=== PATIENT | male | born 1965 | race Caucasian/White ===

== ENCOUNTER 2016-10-23 11:37 | Emergency (ER) | payer OTHER, BC ==
[2016-10-23] MEDS ORDERED: METOCLOPRAMIDE INJ 10MG/2ML VIAL (J2765) IV ONE (12:45)
[2016-10-23 13:16] VITALS: BP 133/84
--- NOTE | 2016-10-23 13:33 | REP ---
CT Head without contrast HISTORY: Trauma COMPARISON: None There is no intraparenchymal hemorrhage, acute infarct, mass or midline shift. The ventricular system is normal in appearance. There is no extra cerebral collection. There is no fracture. The visualized sinuses are clear. IMPRESSION: There is no intracranial lesion. Signed by Quoc Yoon MD 10/23/2016 01:24 P
[2016-10-23] MEDS ORDERED: CYCL10TA PO (13:40)
[2016-10-23] MEDS ORDERED: IBUP600T26 PO (13:40)
--- NOTE | 2016-10-23 13:47 | REP ---
CT CERVICAL SPINE WITHOUT CONTRAST: HISTORY: Trauma. There is no acute fracture or subluxation. Disc bulges are present at the C2-3 through C4-5 levels. A disc bulge with associated osteophyte formation is present at the C5-6 level. There is minimal narrowing of the spinal canal. Uncinate process hypertrophy is present at the C5-6 level. This produces mild and minimal narrowing of the right and left C5 neural foramina respectfully. The remaining neural foramina are patent. The C5-6 intervertebral disc is decreased in height consistent with disc degeneration. Cervical ribs are present on C7. IMPRESSION: 1. There is no acute fracture or subluxation. 2. There is cervical spondylosis at the C2-3 through C5-6 levels. Signed by Quoc Yoon MD 10/23/2016 01:50 P
== END 2016-10-23 14:08 | disposition home or self-care (01) ==
LOC: EDBD 11:37 → M ED 13:08
DX: S06.0X9A Concussion with loss of consciousness of unspecified duration, initial encounter (principal); S00.01XA Abrasion of scalp, initial encounter; T14.8 Other injury of unspecified body region; V43.52XA Car driver injured in collision with other type car in traffic accident, initial encounter; Y92.410 Unspecified street and highway as the place of occurrence of the external cause
CPT/HCPCS: 70450; 72125; 96374; 99283; J2765

== ENCOUNTER → 2017-11-11 | Outpatient (CLI) | payer OTHER, BC | LOC: M WUC 10:13 | DX: T15.91XA Foreign body on external eye, part unspecified, right eye, initial encounter (principal); T15.92XA Foreign body on external eye, part unspecified, left eye, initial encounter | CPT/HCPCS: 70200 ==

== ENCOUNTER 2018-11-12 07:22 | Emergency (ER) | payer BC, OTHER ==
[~2018-11-12] VITALS: Ht 165.1 cm; Wt 79.0 kg
[~2018-11-12 07:22] MED LIST: CYCL10TA PO; IBUP-1022 PO
[2018-11-12] MEDS ORDERED: CITA20TA6 (07:30)
[2018-11-12] MEDS ORDERED: MUCI120T PO (07:30)
[2018-11-12] MEDS ORDERED: KETOROLAC 30 MG/ML VIAL (J1885) IV ONE (08:15)
[2018-11-12] MEDS ORDERED: ACETAMINOPHEN 500 MG TAB PO ONE (08:15)
[2018-11-12] MEDS ORDERED: NS 1,000 ML IV ONE (08:15)
[2018-11-12 08:59] LABS: BASO # 0.1 10^3/uL (0.0-0.2); BASO % 0.7 % (0.0-1.0); EOS # 0.3 10^3/uL (0.0-0.50); EOS % 3.2 % (0.0-3.0); HEMATOCRIT 44.4 % (42.0-52.0); HEMOGLOBIN 15.2 g/dl (13.5-17.5); LYMPH # 1.7 10^3/uL (1.5-4.5); LYMPH % 18.8 % (24.0-44.0); MEAN CORPUSCULAR HEMOGLOBIN 28.6 pg (27.0-33.0); MEAN CORPUSCULAR HGB CONC 34.2 g/dl (32.0-36.5); MEAN CORPUSCULAR VOLUME 83.5 fl (80.0-96.0); MONO # 0.5 10^3/uL (0.0-0.8); MONO % 5.7 % (0.0-5.0); NEUTROPHILS # 6.3 10^3/uL (1.8-7.7); NEUTROPHILS % 70.7 % (36.0-66.0); PLATELET COUNT, AUTOMATED 326 10^3/uL (150-450); RED BLOOD COUNT 5.32 10^6/uL (4.30-6.10); WHITE BLOOD COUNT 8.8 10^3/uL (4.0-10.0)
[2018-11-12 09:32] LABS: ALT/SGPT 35 U/L (12-78); BILIRUBIN,DIRECT < 0.1 MG/DL (0.0-0.2); BILIRUBIN,TOTAL 0.3 MG/DL (0.2-1.0); BLOOD UREA NITROGEN 17 MG/DL (7-18); CALCIUM LEVEL 9.2 MG/DL (8.5-10.1); CARBON DIOXIDE LEVEL 27 MEQ/L (21-32); CHLORIDE LEVEL 106 MEQ/L (98-107); CREATININE FOR GFR 0.92 MG/DL (0.70-1.30); GLOMERULAR FILTRATION RATE > 60.0 (>56); GLUCOSE, FASTING 111 MG/DL (70-100); LIPASE 316 U/L (73-393); POTASSIUM SERUM 4.7 MEQ/L (3.5-5.1); SODIUM LEVEL 140 MEQ/L (136-145); TOTAL PROTEIN 7.4 GM/DL (6.4-8.2)
--- NOTE | 2018-11-12 09:43 | REP ---
CT abdomen and pelvis without IV or oral contrast: History: Left flank pain. No comparison study. CT findings: Digital preliminary advance scout radiograph shows a normal bowel gas pattern. The liver and spleen are normal in size, homogeneous in texture. The lung bases are clear. No adrenal lesion is seen. No pancreatic abnormality is noted. No abnormality is visible in the gallbladder. There is no evidence of retroperitoneal mass or adenopathy. Some vascular calcification is observed. The patient is status post bilateral inguinal herniorrhaphy. No abnormal fluid collection or recurrent abdominal wall defect is seen. There are one or two dystrophic calcifications in the prostate. Urinary bladder is unremarkable. There is mild left-sided hydronephrosis and proximally hydroureter. This is due to the presence of a 3 mm calculus in the mid ureter on the left. There is mild periureteral edema. There is no evidence of intrarenal calculus on either side. No other ureteral calculus is seen. No bladder calculus is observed. A normal appendix is seen. Impression: Hydronephrosis and hydroureter on the left due to a 3 mm obstructive calculus in the left mid ureter seen at the level of the L4 vertebral body. Electronically Signed by Cleveland Earl MD 11/12/2018 12:02 P
[2018-11-12] MEDS ORDERED: FLOM0.4C39 PO (10:00)
[2018-11-12] MEDS ORDERED: IBUP-1022 PO (10:00)
[2018-11-12] MEDS ORDERED: HYDR-3715 PO (10:00)
[2018-11-12 10:43] VITALS: BP 154/95
== END 2018-11-12 10:47 | disposition home or self-care (01) ==
LOC: M ED 07:22
DX: N23 Unspecified renal colic (principal); E11.9 Type 2 diabetes mellitus without complications; E78.2 Mixed hyperlipidemia; F33.9 Major depressive disorder, recurrent, unspecified; Z87.442 Personal history of urinary calculi; Z98.890 Other specified postprocedural states; Z88.1 Allergy status to other antibiotic agents; Z88.2 Allergy status to sulfonamides; Z79.899 Other long term (current) drug therapy
CPT/HCPCS: 74176; 80048; 80076; 83690; 85025; 93041; 96374; 99284; J1885

== ENCOUNTER → 2021-03-20 | Outpatient (CLI) | payer OTHER, BC ==
[~2021-03-20] MED LIST changes: +CITA20TA6; +CYCL-707 PO; -CYCL10TA PO; +FLOM0.4C39 PO; +HYDR-3715 PO; +MUCI120T PO
[2021-03-20 11:48] LABS: BASO # 0.1 10^3/uL (0.0-0.2); BASO % 0.9 % (0.0-1.0); EOS # 0.3 10^3/uL (0.0-0.5); EOS % 3.4 % (0.0-3.0); HEMATOCRIT 48.7 % (42.0-52.0); HEMOGLOBIN 16.3 g/dl (13.5-17.5); LYMPH # 1.7 10^3/uL (1.5-5.0); LYMPH % 21.3 % (24.0-44.0); MEAN CORPUSCULAR HGB CONC 33.5 g/dl (32.0-36.5); MEAN CORPUSCULAR VOLUME 83.7 fl (80.0-96.0); MONO # 0.5 10^3/uL (0.0-0.8); MONO % 6.2 % (2.0-8.0); NEUTROPHILS # 5.3 10^3/uL (1.5-8.5); NEUTROPHILS % 67.7 % (36.0-66.0); PLATELET COUNT, AUTOMATED 239 10^3/uL (150-450); RED BLOOD COUNT 5.82 10^6/uL (4.30-6.10); WHITE BLOOD COUNT 7.9 10^3/uL (4.0-10.0)
[2021-03-20 12:10] LABS: ALBUMIN 4.1 GM/DL (3.2-5.2); ALT/SGPT 33 U/L (12-78); BILIRUBIN,TOTAL 0.7 MG/DL (0.2-1.0); BLOOD UREA NITROGEN 18 MG/DL (7-18); CALCIUM LEVEL 8.9 MG/DL (8.5-10.1); CARBON DIOXIDE LEVEL 30 MEQ/L (21-32); CHLORIDE LEVEL 104 MEQ/L (98-107); CHOLESTEROL LEVEL 329 MG/DL (<200); CHOLESTEROL RISK RATIO 7.833 (<5); CREATININE FOR GFR 1.08 MG/DL (0.70-1.30); GLOMERULAR FILTRATION RATE > 60.0 (>56); GLUCOSE, FASTING 100 MG/DL (70-100); HDL CHOLESTEROL 42 MG/DL (>40); LDL CHOLESTEROL 242 MG/DL (<100); NON-HDL-C 287 MG/DL; POTASSIUM SERUM 4.3 MEQ/L (3.5-5.1); SODIUM LEVEL 139 MEQ/L (136-145); TOTAL PROTEIN 7.2 GM/DL (6.4-8.2); TRIGLYCERIDES LEVEL 224 MG/DL (<150)
[2021-03-20 12:12] LABS: TOTAL 25(OH) VITAMIN D 21.5 NG/ML (30.0-100.0); VITAMIN B12 LEVEL 421 PG/ML
[2021-03-20 12:13] LABS: FOLATE 10.2 NG/ML
== END ==
LOC: M WUC 08:36
PROVIDERS: ATTEND Psychiatry & Neurology Neurology
DX: E78.5 Hyperlipidemia, unspecified (principal); I67.82 Cerebral ischemia